=== PATIENT | female | born 1955 | race American Indian/Alaskan Native ===

== ENCOUNTER 2017-10-17 15:28 | Inpatient (IN) | payer OTHER ==
[2017-10-17] MEDS ORDERED: NACL 0.9% 1000 ML 1,000 ML ONE ×2 (16:18→16:19)
[2017-10-17 16:47] LABS: Basophils % (Auto) 0.8 % (0.0-1.8); Eosinophils % (Auto) 1.9 % (0.0-4.3); Hematocrit 28.8 % (30.3-42.9); Hemoglobin 9.5 gm/dl (10.1-14.3); Mean Corpuscular HGB Conc 33 % (30-34); Mean Corpuscular Hemoglobin 30 pg (28-32); Mean Corpuscular Volume 92 fl (79-97); Platelet Count 315 K/mm3 (140-440); Red Blood Count 3.12 M/mm3 (3.65-5.03); White Blood Count 4.9 K/mm3 (4.5-11.0)
[2017-10-17 17:02] LABS: Anion Gap 13 mmol/L; BUN/Creatinine Ratio 22; Blood Urea Nitrogen 13 mg/dL (7-17); Calcium 9.8 mg/dL (8.4-10.2); Carbon Dioxide 35 mmol/L (22-30); Chloride 98.6 mmol/L (98-107); Glucose 97 mg/dL (65-100); Sodium 143 mmol/L (137-145)
--- NOTE | 2017-10-17 17:58 | Emergency Department Report ---
ED General Adult HPI - General Chief complaint: Extremity Injury, Lower Stated complaint: BILATERAL PEDAL EDEMA Time Seen by Provider: 10/17/17 17:32 Source: patient, EMS Mode of arrival: Stretcher Limitations: Other - History of Present Illness Initial comments: Patient says since September 22 she's noticed gradual swelling of the bilateral lower extremities. No shortness of breath. She is beginning to find it increasingly difficult to ambulate. MD Complaint: bilateral leg swelling Onset/Timin (month ago) -: Gradual Location: lower extremity Radiation: non-radiation Quality: aching Consistency: constant Improves with: none Worsens with: none Associated Symptoms: denies other symptoms Treatments Prior to Arrival: none - Related Data Previous Rx's Medication Instructions Recorded Last Taken Type Enoxaparin [Lovenox] 50 mg SQ Q12HR #7 syringe 10/17/17 Unknown Rx Allergies Allergy/AdvReac Type Severity Reaction Status Date / Time No Known Allergies Allergy Unverified 10/17/17 15:32 ED Review of Systems ROS: Stated complaint: BILATERAL PEDAL EDEMA Other details as noted in HPI Comment: All other systems reviewed and negative ED Past Medical Hx - Past Medical History Previous Medical History?: Yes Hx Psychiatric Treatment: Yes (depression) - Surgical History Past Surgical History?: Yes Additional Surgical History: left leg - Social History Smoking Status: Never Smoker Substance Use Type: None - Medications Home Medications: Home Medications Medication Instructions Recorded Confirmed Last Taken Type Enoxaparin [Lovenox] 50 mg SQ Q12HR #7 syringe 10/17/17 Unknown Rx ED Physical Exam - General Limitations: No Limitations, Other General appearance: alert, in no apparent distress - Head Head exam: Present: atraumatic, normocephalic - Eye Eye exam: Present: normal appearance - ENT ENT exam: Present: mucous membranes moist - Neck Neck exam: Present: normal inspection - Respiratory Respiratory exam: Present: normal lung sounds bilaterally. Absent: respiratory distress - Cardiovascular Cardiovascular Exam: Present: regular rate, normal rhythm. Absent: systolic murmur, diastolic murmur, rubs, gallop - GI/Abdominal GI/Abdominal exam: Present: soft, normal bowel sounds. Absent: tenderness - Rectal Rectal exam: Present: deferred - Extremities Exam Extremities exam: Present: normal inspection - Back Exam Back exam: Present: normal inspection - Neurological Exam Neurological exam: Present: alert, oriented X3 - Psychiatric Psychiatric exam: Present: normal affect, normal mood - Skin Skin exam: Present: warm, dry, intact, normal color. Absent: rash ED Course Vital Signs 10/17/17 10/17/17 10/17/17 14:26 14:30 14:46 Pulse Rate Respiratory Rate Blood Pressure 134/65 134/65 134/65 O2 Sat by Pulse 100 99 99 Oximetry 10/17/17 10/17/17 10/17/17 15:58 16:07 16:15 Pulse Rate 90 92 H 86 Respiratory 19 13 20 Rate Blood Pressure 134/65 84/50 O2 Sat by Pulse 100 78 L Oximetry 10/17/17 10/17/17 10/17/17 16:30 16:45 17:01 Pulse Rate 87 88 90 Respiratory 12 17 11 L Rate Blood Pressure 96/57 84/51 84/51 O2 Sat by Pulse 100 64 L 100 Oximetry 10/17/17 10/17/17 10/17/17 17:15 17:31 17:40 Pulse Rate 84 83 Respiratory 13 12 13 Rate Blood Pressure 84/51 84/51 O2 Sat by Pulse 100 Oximetry 10/17/17 10/17/17 10/17/17 17:45 18:00 18:15 Pulse Rate 92 H 81 79 Respiratory 9 L 12 12 Rate Blood Pressure 93/62 82/52 90/58 O2 Sat by Pulse 99 99 100 Oximetry 10/17/17 18:30 Pulse Rate 78 Respiratory 12 Rate Blood Pressure 81/48 O2 Sat by Pulse Oximetry ED Medical Decision Making - Lab Data Result diagrams: 10/17/17 16:11 10/17/17 18:51 - EKG Data EKG shows normal: sinus rhythm, axis (normal), intervals (noprmal), QRS complexes (normal), ST-T waves (normal) Critical care attestation.: If time is entered above; I have spent that time in minutes in the direct care of this critically ill patient, excluding procedure time. ED Disposition Clinical Impression: Edema extremities Disposition: DC-01 TO HOME OR SELFCARE Is pt being admited?: No Condition: Stable Instructions: Leg Edema (ED) Additional Instructions: Radiology will call you tomorrow about an appointment for a lower extremity ultrasound.Ensure you attend it. take lovenox until ultrasound is negative for blood clot Prescriptions: Enoxaparin [Lovenox] 50 mg SQ Q12HR #7 syringe Referrals: KANDICE CHANDRA MD [Primary Care Provider] - 3-5 Days Time of Disposition: 19:51 Print Language: ROMANIAN
[2017-10-17] MEDS ORDERED: NACL 0.9% 500 ML 500 ML IV ONE (18:55)
[2017-10-17] MEDS ORDERED: NACL 0.9% 1000 ML 1,000 ML IV ONE (19:02)
[2017-10-17 19:37] LABS: INR 1.22 (0.87-1.13)
[2017-10-17 19:38] LABS: Partial Thromboplastin Time 44.1 Sec. (24.2-36.6)
[2017-10-17 19:45] LABS: Alanine Aminotransferase 17 units/L (7-56); Albumin 3.4 g/dL (3.9-5); Albumin/Globulin Ratio 1.3 %; Alkaline Phosphatase 62 units/L (35-129); Anion Gap 13 mmol/L; BUN/Creatinine Ratio 22; Blood Urea Nitrogen 13 mg/dL (7-17); Calcium 9.1 mg/dL (8.4-10.2); Carbon Dioxide 34 mmol/L (22-30); Chloride 99.2 mmol/L (98-107); Glucose 84 mg/dL (65-100); Potassium 3.7 mmol/L (3.6-5.0); Sodium 142 mmol/L (137-145); Total Protein 6.1 g/dL (6.3-8.2)
[2017-10-17] MEDS ORDERED: LOVENOX SUB-Q ONE (19:46)
--- NOTE | 2017-10-17 23:10 | Emergency Department Report ---
Blank Doc - Documentation Documentation: I was approached about this patient by the nurse as the patient was being set up to return to [facility] where she is currently being treated for depression as a voluntary admission. The patient was here for lower extremity edema and appears to been given a prescription for Lovenox and orders to return tomorrow for lower extremity venous Doppler to rule out DVT. The patient presented with a blood pressure of a systolic about 130. However prior to discharge the patient displayed some lower blood pressure readings. When the nurse approached me she had a systolic of about 80. The patient received 2 L of IV fluid. I placed her at 150 mL per hour and reevaluated multiple times and her blood pressure appears to vary between a map of 55 to 70. The patient says that she runs low for her blood pressure but some of the readings appear to low for the patient to be discharged back to [facility]. The patient is asymptomatic from this hypotension currently and does appear to respond to IV fluid but I think she will benefit from admission and further monitoring and evaluation of this hypotension. I spoke to the hospitalist, Dr. Fernandez, who will evaluate the patient for admission.
--- NOTE | 2017-10-17 23:57 | History and Physical Report ---
History of Present Illness Date of examination: 10/17/17 History of present illness: 61 year old woman with history of depression was sent from [place] for evaluation of lower extremity edema. She stated that she had edema since September 22, she was evaluated by primary care physician, no etiology found, she can't recall test that were done. She denies shortness of breath, PND, prominent. Admits to 20 pound weight loss over one month. The patient was set for discharge back to [place], her blood pressure dropped and she has been maintained on IV fluids. She stated her blood pressure is usually around 100 systolically. Patient is on pradaxa, she does not know why. She was given full dose Lovenox in the emergency room and set up for a Doppler for lower extremity before discharge Review Of Systems: Constitutional: +weight loss Ears, eyes, nose, mouth and throat: no nasal congestion, no nasal discharge, no sinus pressure, blurry vision, diplopia Neck: No neck pain or rigidity. Cardiovascular: No chest pain, palpitations Respiratory: No shortness of breath, cough Gastrointestinal: No abdominal pain, hematochezia Genitourinary : no dysuria, frequency , hematuria Musculoskeletal: no muscle ache Integumentary: no rash, no pruritis Neurological: no parathesias, focal weakness Endocrine: no cold or heat intolerance, no polyuria or polydipsia Hematologic/Lymphatic: no easy bruising, no easy bleeding, no gland swelling Allergic/Immunologic: no urticaria, no angioedema. PAST MEDICAL HISTORY:depression PAST SURGICAL HISTORY:none FAMILY HISTORY: Hypertension SOCIAL HISTORY: Denies alcohol, tobacco, drugs Medications and Allergies Allergies Allergy/AdvReac Type Severity Reaction Status Date / Time No Known Allergies Allergy Unverified 10/17/17 15:32 Home Medications Medication Instructions Recorded Confirmed Last Taken Type Dabigatran [Pradaxa] 150 mg PO BID 10/18/17 10/18/17 10/17/17 History LORazepam [Ativan] 0.5 mg PO Q6H 10/18/17 10/18/17 Unknown History Mirtazapine [Remeron] 30 mg PO HS 10/18/17 10/18/17 10/16/17 History OLANzapine [ZyPREXA] 2.5 mg PO BID 10/18/17 10/18/17 10/17/17 History Lasix 40 mg PO DAILY #30 10/20/17 Unknown Rx Potassium Chloride 20 meq PO Q24H #30 tab.er.prt 10/20/17 Unknown Rx Exam - Physical Exam Narrative exam: Gen. appearance: Patient lying in bed in no acute distress HEENT: Normocephalic/atraumatic, pupils equal round reactive to light, extra occular movement intact, no scleral icterus, no JVD or thyromegaly or nodule, neck is supple, mucous membrane moist, no erythema or exudate Heart: S1-S2, regular rate and rhythm Lungs: Clear to auscultation bilateral breathing comfortable Abdomen: Positive bowel sounds, nontender, nondistended, no organomegaly Extremities: 3+ edema, no cyanosis, clubbing Neuro:: Oriented 3 , cranial nerves II-12 intact, speech, motor intact Skin: No rash, nodules, warm dry - Constitutional Vitals: Temp Pulse Resp BP Pulse Ox 83 12 92/60 98 10/17/17 23:30 10/17/17 23:30 10/17/17 23:30 10/17/17 23:30 Results - Labs CBC & Chem 7: 10/19/17 04:51 10/19/17 04:51 Labs: Abnormal lab results 10/17/17 10/17/17 10/17/17 Range/Units 16:11 16:11 18:51 RBC 3.12 L (3.65-5.03) M/mm3 Hgb 9.5 L (10.1-14.3) gm/dl Hct 28.8 L (30.3-42.9) % [place] % (Auto) 11.7 H (0.0-7.3) % PT (12.2-14.9) Sec. INR (0.87-1.13) APTT (24.2-36.6) Sec. D-Dimer (0-234) ng/mlDDU Carbon Dioxide 35 H 34 H (22-30) mmol/L Creatinine 0.6 L 0.6 L (0.7-1.2) mg/dL Total Protein 6.1 L (6.3-8.2) g/dL Albumin 3.4 L (3.9-5) g/dL 10/17/17 Range/Units 19:20 RBC (3.65-5.03) M/mm3 Hgb (10.1-14.3) gm/dl Hct (30.3-42.9) % [place] % (Auto) (0.0-7.3) % PT 16.1 H (12.2-14.9) Sec. INR 1.22 H (0.87-1.13) APTT 44.1 H (24.2-36.6) Sec. D-Dimer 1257.35 H (0-234) ng/mlDDU Carbon Dioxide (22-30) mmol/L Creatinine (0.7-1.2) mg/dL Total Protein (6.3-8.2) g/dL Albumin (3.9-5) g/dL Assessment and Plan Assessment Lower extremity edema Relative hypotension Depression Plan Admit to medicine Check CAT scan of the abdomen and pelvis, rule out abdominal etiology, check echo, venous doppler Continue IV fluids, will need Lasix but blood pressure will not tolerate Continue appropriate outpatient medications, DVT prophylaxis
[2017-10-18] MEDS ORDERED: TYLENOL PO PRN (00:05)
[2017-10-18] MEDS ORDERED: ZOFRAN IV PRN (00:05)
[2017-10-18] MEDS ORDERED: MILK OF MAGNESIA PO PRN (00:05)
[2017-10-18] MEDS ORDERED: DULCOLAX PR PRN (00:05)
--- NOTE | 2017-10-18 00:07 | History and Physical Report ---
Medications and Allergies Allergies Allergy/AdvReac Type Severity Reaction Status Date / Time No Known Allergies Allergy Unverified 10/17/17 15:32 Home Medications Medication Instructions Recorded Confirmed Last Taken Type Enoxaparin [Lovenox] 50 mg SQ Q12HR #7 syringe 10/17/17 Unknown Rx Exam - Constitutional Vitals: Temp Pulse Resp BP Pulse Ox 83 12 92/60 98 10/17/17 23:30 10/17/17 23:30 10/17/17 23:30 10/17/17 23:30 Results - Labs CBC & Chem 7: 10/17/17 16:11 10/17/17 18:51 Labs: Abnormal lab results 10/17/17 10/17/17 10/17/17 Range/Units 16:11 16:11 18:51 RBC 3.12 L (3.65-5.03) M/mm3 Hgb 9.5 L (10.1-14.3) gm/dl Hct 28.8 L (30.3-42.9) % [place] % (Auto) 11.7 H (0.0-7.3) % PT (12.2-14.9) Sec. INR (0.87-1.13) APTT (24.2-36.6) Sec. D-Dimer (0-234) ng/mlDDU Carbon Dioxide 35 H 34 H (22-30) mmol/L Creatinine 0.6 L 0.6 L (0.7-1.2) mg/dL Total Protein 6.1 L (6.3-8.2) g/dL Albumin 3.4 L (3.9-5) g/dL 10/17/17 Range/Units 19:20 RBC (3.65-5.03) M/mm3 Hgb (10.1-14.3) gm/dl Hct (30.3-42.9) % [place] % (Auto) (0.0-7.3) % PT 16.1 H (12.2-14.9) Sec. INR 1.22 H (0.87-1.13) APTT 44.1 H (24.2-36.6) Sec. D-Dimer 1257.35 H (0-234) ng/mlDDU Carbon Dioxide (22-30) mmol/L Creatinine (0.7-1.2) mg/dL Total Protein (6.3-8.2) g/dL Albumin (3.9-5) g/dL
[2017-10-18] MEDS ORDERED: NACL 0.45% 1000 ML 1,000 ML IV SCH ×2 (01:00→03:00)
[2017-10-18 02:23] LABS: Bilirubin,Urine NEG (Negative); Blood,Urine NEG (Negative); Ketones,Urine NEG (Negative); Leukocyte Esterase,Urine NEG (Negative); Nitrite,Urine NEG (Negative); Protein,Urine <15 mg/dL mg/dL (Negative); Urobilinogen,Urine < 2.0 mg/dL (<2.0)
[2017-10-18] MEDS ORDERED: NACL 0.9% 250ML 250 ML IV ONE (02:33)
--- NOTE | 2017-10-18 03:30 | Cat Scan Report ---
FINAL REPORT EXAM: CT A/P w/o Contrast CLINICAL INDICATIONS: LE EDEMA, WGT LOSS FINDINGS: Unenhanced CT of the abdomen and pelvis was performed. The heart is normal in size. There is bibasilar atelectasis but otherwise the lung bases appear clear. There is mild wall thickening of the distal esophagus, likely esophagitis. Abdomen: The unenhanced liver, spleen, adrenal glands are unremarkable. The pancreas is not well-seen, as the examination is limited by lack of oral and intravenous contrast. There is no renal or ureteral calculus. The gallbladder is mildly distended but is otherwise unremarkable. There is no small or large bowel obstruction. There is inferior vena cava filter. Stool seen throughout the colon. The patient appears to be mildly constipated. Pelvis: There is a normal appendix. There is no evidence of diverticulitis. There is no adnexal mass. The urinary bladder is within normal limits. There are old healed fractures of the right ischium and right pubis. IMPRESSION: ABDOMEN: LIMITED BY LACK OF ORAL AND INTRAVENOUS CONTRAST NO BOWEL OBSTRUCTION CONSTIPATION PELVIS: NO EVIDENCE OF DIVERTICULITIS
[2017-10-18] MEDS ORDERED: LASIX IV NR (10:00)
--- NOTE | 2017-10-18 10:54 | Progress Note ---
<QUENTIN ARMSTRONG - Last Filed: 10/18/17 11:40> Assessment and Plan Assessment and plan: Assessment: 61 year old woman with history of depression was sent from [place] for evaluation of lower extremity edema. Patient seen and evaluated today with no apparent distress. Is alert and oriented times 3-4. Pupils +3 equal and reactive to light and accommodation. Neck is without jujular vein distension and lymphadenopathy. Lungs clear to auscultation bilaterally. Noted with normal heart sound, regular with S1 S2, + 2 Pulses in upper extremities but +1 to Lower extremities along with +3 pitting edema. Patient complaining of mild pain to bilateral ankles rating a 2 on pain scale. Abdomen auscultated and noted with positive bowel sounds, non tender and non-distended. Overall skin warm, dry and intact. Plan: B/L Lower Extremity Edema/R/O DVT Venous Doppler S/P Lovenox Lasix 40 mg IVP x 1 D/C IV Fluids Echo to R/O HF Constipation Continue on Bisicodyl Encourage to increase intake of foods that contains Fiber Depression Continue with home antidepressant medication of Remeron and Zyprexa Discharge Planning Plan to D/C patient back to [place] posr discharge where patient is a resident prior to hospital admission. Will continue on Anti Patient has been seen and evaluated in conjunction with Dr Funez who agree with treatment regimen and current plan of care. History Interval history: Patient is a 61 year old female admitted from [place] with history of depression was sent from [place] for evaluation of lower extremity edema. Patient stated that she had edema since September 22, she was evaluated by primary care physician, no etiology found, she can't recall test that were done. She denies shortness of breath, PND, prominent. Admits to 20 pound weight loss over one month. The patient was set for discharge back to [place], her blood pressure dropped and she has been maintained on IV fluids. Patient is on prophylaxis, she does not know why. She was given full dose Lovenox in the emergency room and have orders for Lower Extremity Doppler, Echo, EKG and CTA. Currently, blood pressure stabilize as patient states normal blood pressure is usually in the 90's. Hospitalist Physical - Constitutional Vitals: Temp Pulse Resp BP Pulse Ox 98.3 F 91 H 16 105/63 95 10/18/17 07:09 10/18/17 07:09 10/18/17 07:09 10/18/17 07:09 10/18/17 09:07 General appearance: Present: no acute distress - EENT Eyes: Present: PERRL ENT: hearing intact - Neck Neck: Present: supple, normal ROM. Absent: rigidity, enlarged thyroid, masses or JVD, cervical LAD, carotid bruits - Respiratory Respiratory effort: normal Respiratory: bilateral: CTA (No Shortness of breath, no Rales or rhonchi noted) - Cardiovascular Rhythm: regular Heart Sounds: Present: S1 & S2. Absent: systolic murmur, diastolic murmur - Extremities Extremities: normal temperature Extremity abnormal: edema (+3-4 Bilateral Pedal Edema to lower extremities. Warm to touch) Peripheral Pulses: abnormal (+1 Bilateral pedal pulses) - Abdominal General gastrointestinal: soft, non-tender, non-distended, normal bowel sounds, no hepatomegaly, no splenomegaly - Integumentary Integumentary: Present: warm, dry, normal turgor. Absent: jaundice - Psychiatric Psychiatric: appropriate mood/affect, cooperative Results - Labs CBC & Chem 7: 10/17/17 16:11 10/17/17 18:51 Labs: Laboratory Last Values WBC 4.9 K/mm3 (4.5-11.0) 10/17/17 16:11 RBC 3.12 M/mm3 (3.65-5.03) L 10/17/17 16:11 Hgb 9.5 gm/dl (10.1-14.3) L 10/17/17 16:11 Hct 28.8 % (30.3-42.9) L 10/17/17 16:11 MCV 92 fl (79-97) 10/17/17 16:11 MCH 30 pg (28-32) 10/17/17 16:11 MCHC 33 % (30-34) 10/17/17 16:11 RDW 14.0 % (13.2-15.2) 10/17/17 16:11 Plt Count 315 K/mm3 (140-440) 10/17/17 16:11 Lymph % (Auto) 28.6 % (13.4-35.0) 10/17/17 16:11 [place] % (Auto) 11.7 % (0.0-7.3) H 10/17/17 16:11 Eos % (Auto) 1.9 % (0.0-4.3) 10/17/17 16:11 Baso % (Auto) 0.8 % (0.0-1.8) 10/17/17 16:11 Lymph # 1.4 K/mm3 (1.2-5.4) 10/17/17 16:11 [place] # 0.6 K/mm3 (0.0-0.8) 10/17/17 16:11 Eos # 0.1 K/mm3 (0.0-0.4) 10/17/17 16:11 Baso # 0.0 K/mm3 (0.0-0.1) 10/17/17 16:11 Seg Neutrophils % 57.0 % (40.0-70.0) 10/17/17 16:11 Seg Neutrophils # 2.8 K/mm3 (1.8-7.7) 10/17/17 16:11 PT 16.1 Sec. (12.2-14.9) H 10/17/17 19:20 INR 1.22 (0.87-1.13) H 10/17/17 19:20 APTT 44.1 Sec. (24.2-36.6) H 10/17/17 19:20 D-Dimer 1257.35 ng/mlDDU (0-234) H 10/17/17 19:20 Sodium 142 mmol/L (137-145) 10/17/17 18:51 Potassium 3.7 mmol/L (3.6-5.0) 10/17/17 18:51 Chloride 99.2 mmol/L (98-107) 10/17/17 18:51 Carbon Dioxide 34 mmol/L (22-30) H 10/17/17 18:51 Anion Gap 13 mmol/L 10/17/17 18:51 BUN 13 mg/dL (7-17) 10/17/17 18:51 Creatinine 0.6 mg/dL (0.7-1.2) L 10/17/17 18:51 Estimated GFR > 60 ml/min 10/17/17 18:51 BUN/Creatinine Ratio 22 % 10/17/17 18:51 Glucose 84 mg/dL (65-100) 10/17/17 18:51 Calcium 9.1 mg/dL (8.4-10.2) 10/17/17 18:51 Total Bilirubin 0.20 mg/dL (0.1-1.2) 10/17/17 18:51 AST 24 units/L (5-40) 10/17/17 18:51 ALT 17 units/L (7-56) 10/17/17 18:51 Alkaline Phosphatase 62 units/L (35-129) 10/17/17 18:51 NT-Pro-B Natriuret Pep 440.6 pg/mL (0-900) 10/17/17 18:51 Total Protein 6.1 g/dL (6.3-8.2) L 10/17/17 18:51 Albumin 3.4 g/dL (3.9-5) L 10/17/17 18:51 Albumin/Globulin Ratio 1.3 % 10/17/17 18:51 Urine Color Colorless (Yellow) 10/17/17 Unknown Urine Turbidity Clear (Clear) 10/17/17 Unknown Urine pH 7.0 (5.0-7.0) 10/17/17 Unknown Ur Specific [place] 1.011 (1.003-1.030) 10/17/17 Unknown Urine Protein <15 mg/dl mg/dL (Negative) 10/17/17 Unknown Urine Glucose (UA) Neg mg/dL (Negative) 10/17/17 Unknown Urine Ketones Neg mg/dL (Negative) 10/17/17 Unknown Urine Blood Neg (Negative) 10/17/17 Unknown Urine Nitrite Neg (Negative) 10/17/17 Unknown Urine Bilirubin Neg (Negative) 10/17/17 Unknown Urine Urobilinogen < 2.0 mg/dL (<2.0) 10/17/17 Unknown Ur Leukocyte Esterase Neg (Negative) 10/17/17 Unknown Urine WBC (Auto) 1.0 /HPF (0.0-6.0) 10/17/17 Unknown Urine RBC (Auto) 1.0 /HPF (0.0-6.0) 10/17/17 Unknown U Epithel Cells (Auto) < 1.0 /HPF (0-13.0) 10/17/17 Unknown Hyaline Casts 1 /LPF 10/17/17 Unknown <TUCKER FUNEZ - Last Filed: 10/18/17 14:54> Assessment and Plan Assessment and plan: I saw and evaluated the patient. I agree with the findings and the plan of care as documented in the Nurse Practitioner's~note, with the following corrections and additions. refused all ordered evaluation test. states patient recently had all the test at [facility] with no evidence of DVT/PE but was noted to have some abdominal clot around a filter. states patient lower ext has been edematous for sometime now although slightly more than before and that she was recently admitted to [facility] due to aphasia- intentional, and depressed mood and affect and poor po intake. patient denies any difficult with swallowing just states lack of appetitie, again states all work up was done at [facility] and that he informed [facility] but they panic when they saw her legs and sent her to the hospital. Will restart PO Pradaxa. will bring all records. also have discussed with nursing staff to request records from [facility]. Keep lower ext elevated. May benefit from compression stuckings if no overt heart failure diagnosis. If all work has been done patient can be discharged to Psych facility voluntarily in the AM Hospitalist Physical - Constitutional Vitals: Temp Pulse Resp BP Pulse Ox 98.3 F 91 H 16 105/63 95 10/18/17 07:09 10/18/17 07:09 10/18/17 07:09 10/18/17 07:09 10/18/17 09:07 General appearance: Present: no acute distress, well-nourished - Cardiovascular Rhythm: regular Heart Sounds: Present: S1 & S2 - Extremities Extremity abnormal: edema Peripheral Pulses: abnormal - Abdominal General gastrointestinal: soft, non-tender, non-distended, normal bowel sounds - Neurologic Neurologic: CNII-XII intact, moves all extremities, other (LOW MONOTONE VOICE) Results - Labs CBC & Chem 7: 10/17/17 16:11 10/17/17 18:51 Labs: Laboratory Last Values WBC 4.9 K/mm3 (4.5-11.0) 10/17/17 16:11 RBC 3.12 M/mm3 (3.65-5.03) L 10/17/17 16:11 Hgb 9.5 gm/dl (10.1-14.3) L 10/17/17 16:11 Hct 28.8 % (30.3-42.9) L 10/17/17 16:11 MCV 92 fl (79-97) 10/17/17 16:11 MCH 30 pg (28-32) 10/17/17 16:11 MCHC 33 % (30-34) 10/17/17 16:11 RDW 14.0 % (13.2-15.2) 10/17/17 16:11 Plt Count 315 K/mm3 (140-440) 10/17/17 16:11 Lymph % (Auto) 28.6 % (13.4-35.0) 10/17/17 16:11 [place] % (Auto) 11.7 % (0.0-7.3) H 10/17/17 16:11 Eos % (Auto) 1.9 % (0.0-4.3) 10/17/17 16:11 Baso % (Auto) 0.8 % (0.0-1.8) 10/17/17 16:11 Lymph # 1.4 K/mm3 (1.2-5.4) 10/17/17 16:11 [place] # 0.6 K/mm3 (0.0-0.8) 10/17/17 16:11 Eos # 0.1 K/mm3 (0.0-0.4) 10/17/17 16:11 Baso # 0.0 K/mm3 (0.0-0.1) 10/17/17 16:11 Seg Neutrophils % 57.0 % (40.0-70.0) 10/17/17 16:11 Seg Neutrophils # 2.8 K/mm3 (1.8-7.7) 10/17/17 16:11 PT 16.1 Sec. (12.2-14.9) H 10/17/17 19:20 INR 1.22 (0.87-1.13) H 10/17/17 19:20 APTT 44.1 Sec. (24.2-36.6) H 10/17/17 19:20 D-Dimer 1257.35 ng/mlDDU (0-234) H 10/17/17 19:20 Sodium 142 mmol/L (137-145) 10/17/17 18:51 Potassium 3.7 mmol/L (3.6-5.0) 10/17/17 18:51 Chloride 99.2 mmol/L (98-107) 10/17/17 18:51 Carbon Dioxide 34 mmol/L (22-30) H 10/17/17 18:51 Anion Gap 13 mmol/L 10/17/17 18:51 BUN 13 mg/dL (7-17) 10/17/17 18:51 Creatinine 0.6 mg/dL (0.7-1.2) L 10/17/17 18:51 Estimated GFR > 60 ml/min 10/17/17 18:51 BUN/Creatinine Ratio 22 % 10/17/17 18:51 Glucose 84 mg/dL (65-100) 10/17/17 18:51 Calcium 9.1 mg/dL (8.4-10.2) 10/17/17 18:51 Total Bilirubin 0.20 mg/dL (0.1-1.2) 10/17/17 18:51 AST 24 units/L (5-40) 10/17/17 18:51 ALT 17 units/L (7-56) 10/17/17 18:51 Alkaline Phosphatase 62 units/L (35-129) 10/17/17 18:51 NT-Pro-B Natriuret Pep 440.6 pg/mL (0-900) 10/17/17 18:51 Total Protein 6.1 g/dL (6.3-8.2) L 10/17/17 18:51 Albumin 3.4 g/dL (3.9-5) L 10/17/17 18:51 Albumin/Globulin Ratio 1.3 % 10/17/17 18:51 Urine Color Colorless (Yellow) 10/17/17 Unknown Urine Turbidity Clear (Clear) 10/17/17 Unknown Urine pH 7.0 (5.0-7.0) 10/17/17 Unknown Ur Specific [place] 1.011 (1.003-1.030) 10/17/17 Unknown Urine Protein <15 mg/dl mg/dL (Negative) 10/17/17 Unknown Urine Glucose (UA) Neg mg/dL (Negative) 10/17/17 Unknown Urine Ketones Neg mg/dL (Negative) 10/17/17 Unknown Urine Blood Neg (Negative) 10/17/17 Unknown Urine Nitrite Neg (Negative) 10/17/17 Unknown Urine Bilirubin Neg (Negative) 10/17/17 Unknown Urine Urobilinogen < 2.0 mg/dL (<2.0) 10/17/17 Unknown Ur Leukocyte Esterase Neg (Negative) 10/17/17 Unknown Urine WBC (Auto) 1.0 /HPF (0.0-6.0) 10/17/17 Unknown Urine RBC (Auto) 1.0 /HPF (0.0-6.0) 10/17/17 Unknown U Epithel Cells (Auto) < 1.0 /HPF (0-13.0) 10/17/17 Unknown Hyaline Casts 1 /LPF 10/17/17 Unknown - Imaging and Cardiology CT scan - abdomen: image reviewed (NO BOWEL ABNORMALITY)
[2017-10-18] MEDS ORDERED: NACL ONE (17:04)
--- NOTE | 2017-10-18 17:49 | Cat Scan Report ---
FINAL REPORT PROCEDURE: CT ANGIO CHEST TECHNIQUE: Computerized tomographic angiography of the chest was performed after the IV injection of iodinated nonionic contrast including image processing. The image data was postprocessed using 2-dimensional multiplanar reformatted (MPR) and 3-dimensional (MIP and/or volume rendered) techniques. HISTORY: ELEVATED D DIMER, COMPARISON: No prior studies are available for comparison. FINDINGS: Heart and pericardium: Normal. Thoracic aorta: Normal. Pulmonary vasculature: No filling defects are noted. Lymph nodes: No enlarged thoracic lymph nodes. Lungs: Subsegmental atelectatic changes are noted in bilateral lower lobes in the dependent portion. There are no infiltrates or mass lesions.. Pleural space: Trace left pleural effusion is noted.. Musculoskeletal structures: Old healed fracture deformities of left ribs are noted. Upper abdominal structures: No significant abnormality. IMPRESSION: Trace left pleural effusion No acute pulmonary infiltrates No evidence of pulmonary embolism
[2017-10-18] MEDS: PRADAXA PO SCH (22:07)
[2017-10-19 05:11] LABS: Basophils % (Auto) 1.1 % (0.0-1.8); Eosinophils % (Auto) 2.5 % (0.0-4.3); Hematocrit 24.5 % (30.3-42.9); Hemoglobin 8.3 gm/dl (10.1-14.3); Mean Corpuscular HGB Conc 34 % (30-34); Mean Corpuscular Hemoglobin 31 pg (28-32); Mean Corpuscular Volume 93 fl (79-97); Platelet Count 297 K/mm3 (140-440); Red Blood Count 2.65 M/mm3 (3.65-5.03); Red Cell Distribution Width 13.9 % (13.2-15.2)
[2017-10-19 05:23] LABS: Anion Gap 13 mmol/L; BUN/Creatinine Ratio 16; Blood Urea Nitrogen 8 mg/dL (7-17); Calcium 8.9 mg/dL (8.4-10.2); Carbon Dioxide 34 mmol/L (22-30); Chloride 102.4 mmol/L (98-107); Glucose 81 mg/dL (65-100); Potassium 3.4 mmol/L (3.6-5.0); Sodium 146 mmol/L (137-145)
[2017-10-19] MEDS ORDERED: K-DUR PO ONE (10:00)
[2017-10-19] MEDS: PRADAXA PO SCH ×2 (10:15→21:25)
--- NOTE | 2017-10-19 14:43 | Progress Note ---
Assessment and Plan Assessment and plan: Bilateral lower extremity edema Right lower extremity DVT Depression - Echo is pending - Patient is on dabigatran at home and will continue - Continue her check medications Disposition - Patient to be discharged after the echo History Interval history: Patient was seen and evaluated this morning at the bedside, patient is very quite, answers questions appropriately. Hospitalist Physical - Physical exam Narrative exam: Not in cardiopulmonary distress. The patient appeared well nourished and normally developed. Vital signs as documented. Head exam is unremarkable. No scleral icterus . Neck is without jugular venous distension, thyromegaly, or carotid bruits. Lungs are clear to auscultation. Cardiac exam reveals regular rate and Rhythm. First and second heart sounds normal. No murmurs, rubs or gallops. Abdominal exam reveals normal bowel sounds, no masses, no organomegaly and no aortic enlargement. Extremities are nonedematous and both femoral and pedal pulses are normal. 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 No focal weakness. - Constitutional Vitals: Temp Pulse Resp BP Pulse Ox 98.4 F 98 H 18 99/62 99 10/19/17 07:43 10/19/17 10:00 10/19/17 10:00 10/19/17 07:43 10/19/17 07:43 General appearance: Present: no acute distress, well-nourished Results - Labs CBC & Chem 7: 10/19/17 04:51 10/19/17 04:51 Labs: Laboratory Last Values WBC 4.0 K/mm3 (4.5-11.0) L 10/19/17 04:51 RBC 2.65 M/mm3 (3.65-5.03) L 10/19/17 04:51 Hgb 8.3 gm/dl (10.1-14.3) L 10/19/17 04:51 Hct 24.5 % (30.3-42.9) L 10/19/17 04:51 MCV 93 fl (79-97) 10/19/17 04:51 MCH 31 pg (28-32) 10/19/17 04:51 MCHC 34 % (30-34) 10/19/17 04:51 RDW 13.9 % (13.2-15.2) 10/19/17 04:51 Plt Count 297 K/mm3 (140-440) 10/19/17 04:51 Lymph % (Auto) 34.4 % (13.4-35.0) 10/19/17 04:51 [place] % (Auto) 11.4 % (0.0-7.3) H 10/19/17 04:51 Eos % (Auto) 2.5 % (0.0-4.3) 10/19/17 04:51 Baso % (Auto) 1.1 % (0.0-1.8) 10/19/17 04:51 Lymph # 1.4 K/mm3 (1.2-5.4) 10/19/17 04:51 [place] # 0.5 K/mm3 (0.0-0.8) 10/19/17 04:51 Eos # 0.1 K/mm3 (0.0-0.4) 10/19/17 04:51 Baso # 0.0 K/mm3 (0.0-0.1) 10/19/17 04:51 Seg Neutrophils % 50.6 % (40.0-70.0) 10/19/17 04:51 Seg Neutrophils # 2.0 K/mm3 (1.8-7.7) 10/19/17 04:51 PT 16.1 Sec. (12.2-14.9) H 10/17/17 19:20 INR 1.22 (0.87-1.13) H 10/17/17 19:20 APTT 44.1 Sec. (24.2-36.6) H 10/17/17 19:20 D-Dimer 1257.35 ng/mlDDU (0-234) H 10/17/17 19:20 Sodium 146 mmol/L (137-145) H 10/19/17 04:51 Potassium 3.4 mmol/L (3.6-5.0) L 10/19/17 04:51 Chloride 102.4 mmol/L (98-107) 10/19/17 04:51 Carbon Dioxide 34 mmol/L (22-30) H 10/19/17 04:51 Anion Gap 13 mmol/L 10/19/17 04:51 BUN 8 mg/dL (7-17) 10/19/17 04:51 Creatinine 0.5 mg/dL (0.7-1.2) L 10/19/17 04:51 Estimated GFR > 60 ml/min 10/19/17 04:51 BUN/Creatinine Ratio 16 % 10/19/17 04:51 Glucose 81 mg/dL (65-100) 10/19/17 04:51 Calcium 8.9 mg/dL (8.4-10.2) 10/19/17 04:51 Total Bilirubin 0.20 mg/dL (0.1-1.2) 10/17/17 18:51 AST 24 units/L (5-40) 10/17/17 18:51 ALT 17 units/L (7-56) 10/17/17 18:51 Alkaline Phosphatase 62 units/L (35-129) 10/17/17 18:51 NT-Pro-B Natriuret Pep 440.6 pg/mL (0-900) 10/17/17 18:51 Total Protein 6.1 g/dL (6.3-8.2) L 10/17/17 18:51 Albumin 3.4 g/dL (3.9-5) L 10/17/17 18:51 Albumin/Globulin Ratio 1.3 % 10/17/17 18:51 Urine Color Colorless (Yellow) 10/17/17 Unknown Urine Turbidity Clear (Clear) 10/17/17 Unknown Urine pH 7.0 (5.0-7.0) 10/17/17 Unknown Ur Specific [place] 1.011 (1.003-1.030) 10/17/17 Unknown Urine Protein <15 mg/dl mg/dL (Negative) 10/17/17 Unknown Urine Glucose (UA) Neg mg/dL (Negative) 10/17/17 Unknown Urine Ketones Neg mg/dL (Negative) 10/17/17 Unknown Urine Blood Neg (Negative) 10/17/17 Unknown Urine Nitrite Neg (Negative) 10/17/17 Unknown Urine Bilirubin Neg (Negative) 10/17/17 Unknown Urine Urobilinogen < 2.0 mg/dL (<2.0) 10/17/17 Unknown Ur Leukocyte Esterase Neg (Negative) 10/17/17 Unknown Urine WBC (Auto) 1.0 /HPF (0.0-6.0) 10/17/17 Unknown Urine RBC (Auto) 1.0 /HPF (0.0-6.0) 10/17/17 Unknown U Epithel Cells (Auto) < 1.0 /HPF (0-13.0) 10/17/17 Unknown Hyaline Casts 1 /LPF 10/17/17 Unknown
[2017-10-19] MEDS ORDERED: NON-FORMULARY (Lasix 40 MG) PO SCH (14:45)
[2017-10-19] MEDS: ATIVAN PO SCH ×2 (15:30→21:25)
[2017-10-19] MEDS: LASIX PO SCH (15:30)
[2017-10-19] MEDS ORDERED: REMERON PO SCH (22:00)
[2017-10-20] MEDS: ATIVAN PO SCH ×3 (03:21→16:30)
[2017-10-20] MEDS: LASIX PO SCH (06:45)
[2017-10-20 08:10] VITALS: BP 96/59
[2017-10-20] MEDS ORDERED: K-DUR PO ONE (08:58)
[2017-10-20] MEDS: PRADAXA PO SCH (10:07)
--- NOTE | 2017-10-20 11:55 | Discharge Summary ---
Providers - Providers Date of Admission: 10/17/17 23:57 Attending physician: AIRAM SOLIS MD Primary care physician: KANDICE CHANDRA MD Hospitalization Reason for admission: Bilateral leg swelling, RLE DVT Condition: Stable Pertinent studies: Bilateral lower extremity Doppler ultrasound Right: non-occlusive thrombus is present within the common femoral vein and popliteal vein. Left: Nonocclusive thrombus is present within the common femoral vein. Hospital course: 61 year old woman with history of depression was sent from [place] for evaluation of lower extremity edema. She stated that she had edema since September 22, she was evaluated by primary care physician, no etiology found, she can't recall test that were done. She denies shortness of breath, PND, prominent. Admits to 20 pound weight loss over one month. The patient was set for discharge back to [place], her blood pressure dropped and she has been maintained on IV fluids. She stated her blood pressure is usually around 100 systolically. Patient is on prophylaxis, she does not know why. She was given full dose Lovenox in the emergency room and set up for a Doppler for lower extremity before discharge. Patient was admitted to the floor and bilateral Doppler ultrasound was done and was significant for bilateral lower extremity DVT as stated above, patient is already on pradaxa and advised to continue that. Patient's leg swelling is getting better with leg elevation and Lasix. Patient didn't have any shortness of breath, cough, palpitation or any other signs that is suggestive of CHF. I have called her and asked why the patient is on Pradaxa, but he didn't know exactly why. He states she was in another hospital a month or 2 and was discharged with pradaxa. I believe the patient may have chronic DVT. CTA was done and negative for PE. Patient was hemodynamically stable as a time of discharge and she has appropriate medications including Pradaxa Lasix. Patient and her stated that she is going to [place] for the treatment of depression once she is discharged from our service. Patient is hemodynamically stable at the time of discharge. Disposition: - TO HOME OR SELFCARE Time spent for discharge: 31 minutes - Discharge Diagnoses (1) Deep vein thrombosis (DVT) of distal vein of right lower extremity Status: Acute (2) Edema extremities Status: Acute Core Measure Documentation - Palliative Care Palliative Care/ Comfort Measures: Not Applicable - Core Measures Any of the following diagnoses?: DVT/PE - VTE Discharge Requirements Deep Vein Thrombosis/Pulmonary Embolism Present on Admission: Yes Has pt received <5 days of overlap therapy or INR<2.0: No Anticoagulant overlap therapy prescribed at discharge: No Contraindication No Overlap Therapy order at DC: Not Indicated Exam - Physical Exam Narrative exam: Not in cardiopulmonary distress. The patient appeared well nourished and normally developed. Vital signs as documented. Head exam is unremarkable. No scleral icterus . Neck is without jugular venous distension, thyromegaly, or carotid bruits. Lungs are clear to auscultation. Cardiac exam reveals regular rate and Rhythm. First and second heart sounds normal. No murmurs, rubs or gallops. Abdominal exam reveals normal bowel sounds, no masses, no organomegaly and no aortic enlargement. Extremities mild non pitting edema bilaterally. OCCUPATIONAL NURSE: Alert and oriented 3. No focal weakness. - Constitutional Vitals: Temp Pulse Resp BP Pulse Ox 98.6 F 104 H 19 96/59 97 10/20/17 07:36 10/20/17 07:36 10/20/17 07:36 10/20/17 07:36 10/20/17 07:36 Plan Activity: no restrictions Weight Bearing Status: Full Weight Bearing Follow up with: KANDICE CHANDRA MD [Primary Care Provider] - 3-5 Days Prescriptions: Lasix 40 mg PO DAILY #30 Potassium Chloride 20 meq PO Q24H #30 [email or web address] Other Discharge Orders: VL venous duplex LE BILAT Location: Determined By Patient
--- NOTE | 2017-10-20 14:22 | Vascular Lab Report ---
LOWER EXTREMITY VENOUS DUPLEX: REASON FOR EXAM: Pain and swelling of the lower extremities. COMMENTS ON THE RIGHT: Non-occlusive thrombus is present within the common femoral vein and popliteal vein on the right, the remaining visualized veins are freely compressible without evidence of internal echogenicity. Flow is spontaneous and phasic throughout. COMMENTS ON THE LEFT: Nonocclusive thrombus is present within the common femoral vein, the remaining visualized veins are freely compressible without evidence of internal echogenicity. Flow is spontaneous and phasic throughout. IMPRESSION: Nonocclusive thrombus involving bilateral common femoral veins in the right popliteal vein. The remaining visualized veins are freely compressible without evidence of acute or chronic thrombus.
== END 2017-10-20 15:50 | disposition home or self-care (01) | DRG 301 ==
LOC: ED 15:28 → 3A 23:57
PROVIDERS: ADMIT Internal Medicine; ATTEND Internal Medicine
DX: I82.413 Acute embolism and thrombosis of femoral vein, bilateral (principal); I82.431 Acute embolism and thrombosis of right popliteal vein; I95.9 Hypotension, unspecified; K59.00 Constipation, unspecified; F32.9 Major depressive disorder, single episode, unspecified; Z79.899 Other long term (current) drug therapy; Z82.49 Family history of ischemic heart disease and other diseases of the circulatory system
CPT/HCPCS: 36415; 71275; 74176; 80048; 80053; 81001; 83880; 85025; 85379; 85610; 85730; 93970; 94760; 96372; J1650; J1940; J7030; J7050; Q9967